=== PATIENT | male | born 2000 ===

== ENCOUNTER 2023-03-02 08:18 | Outpatient (CLI) | payer OTHER | END 2023-03-02 08:19 | disposition home or self-care (01) | LOC: ULT 08:18 | PROVIDERS: ATTEND Internal Medicine Gastroenterology | DX: K92.1 Melena (principal); R10.12 Left upper quadrant pain; R10.32 Left lower quadrant pain; R10.9 Unspecified abdominal pain; R74.01 Elevation of levels of liver transaminase levels | CPT/HCPCS: 76700 ==